=== PATIENT | female | born 1950 | race Asian ===

== ENCOUNTER 2024-02-25 16:37 | Emergency (ER) | payer MEDICARE, OTHER ==
[~2024-02-25] VITALS: Ht 157.5 cm; Wt 68.2 kg
[2024-02-25 17:09] LABS: BASOPHILS % (AUTO) 0.8 % (0.0-2.0); EOSINOPHILS % (AUTO) 1.4 % (1.0-6.0); HEMATOCRIT 37.3 % (36-46); HEMOGLOBIN 12.5 g/dL (12.0-16.0); LYMPHOCYTES # (AUTO) 1.2 K/uL (1.0-4.8); MEAN CORPUSCULAR HEMOGLOBIN 30.8 pg (26.0-34.0); MEAN CORPUSCULAR HGB CONC 33.6 G/dL (31.0-37.0); MEAN CORPUSCULAR VOLUME 92 fL (80-100); MONOCYTES # (AUTO) 0.4 K/uL (0.1-1.0); MONOCYTES % (AUTO) 9.7 % (2.0-9.0); NEUTROPHILS # (AUTO) 2.8 K/uL (1.8-7.7); NEUTROPHILS % (AUTO) 62.1 % (40.0-70.0); PLATELET COUNT (AUTO) 215 K/uL (150-450); RED BLOOD CELL COUNT(AUTO) 4.07 MIL/uL (4.00-5.20); RED CELL DISTRIBUTION WIDTH 12.6 % (11.5-14.5); WHITE BLOOD COUNT (AUTO) 4.6 K/uL (4.5-11.0)
[2024-02-25 17:13] LABS: COVID AG,FIA SOURCE NASAL SWAB
[2024-02-25 17:18] LABS: CALCIUM, TOTAL 8.5 mg/dL (8.8-10.5); CREATININE 1.07 mg/dL (0.60-1.30); POTASSIUM 4.1 mmol/L (3.5-5.1)
[2024-02-25 17:43] LABS: SARS-COV2 (COVID) ANTIGEN,FIA Negative (Negative)
[2024-02-25 17:58] LABS: INFLUENZA TYPE B NEGATIVE FOR TYPE B (NEGATIVE)
[2024-02-25 18:00] LABS: INFLUENZA TYPE A POSITIVE FOR TYPE A (NEGATIVE)
[2024-02-25 19:12] LABS: TROPONIN I-HIGH SENSITIVITY 7 ng/L (<51)
[2024-02-25] MEDS ORDERED: CALC1TAB93 PO (19:56)
[2024-02-25] MEDS ORDERED: ISOS10TA16 PO (19:56)
[2024-02-25] MEDS ORDERED: PRAV40TA4 PO (19:56)
[2024-02-25] MEDS ORDERED: ASPI-1522 PO (19:56)
[2024-02-25] MEDS ORDERED: LOSA-381 PO (19:56)
[2024-02-25] MEDS ORDERED: METF-444 PO (19:56)
[2024-02-25] MEDS ORDERED: CARV6.2534 PO (19:56)
[2024-02-25] MEDS ORDERED: FLUT16H NASAL (19:56)
[2024-02-25] MEDS ORDERED: LORA10TA7 PO (19:56)
[2024-02-25] MEDS ORDERED: ACET-66 PO (19:58)
[2024-02-25] MEDS ORDERED: ALBU18HF12 IH (19:58)
[2024-02-25] MEDS ORDERED: GUAIFDM PO (19:58)
[2024-02-25] MEDS: ACETAMINOPHEN 500 MG TABLET PO ONE (20:32)
[2024-02-25] MEDS: GuaiFENesin/D-METHORPHAN [SUGAR-FREE] 200-20MG/10 ML SYRUP UDCUP PO ONE (20:33)
[2024-02-25 20:37] VITALS: BP 119/67; PULSE 85; RESP 18; TEMP 98.9; O2SAT 99
== END 2024-02-26 01:17 | disposition home or self-care (01) ==
LOC: EMS 16:37
DX: J10.1 Influenza due to other identified influenza virus with other respiratory manifestations (principal); J20.9 Acute bronchitis, unspecified; J44.0 Chronic obstructive pulmonary disease with (acute) lower respiratory infection; Z20.822 Contact with and (suspected) exposure to COVID-19
CPT/HCPCS: 71045; 80048; 83880; 84484; 85025; 87804; 93005; 99285; 36415-L1; 36415-TC